=== PATIENT | female | born 1930 | race Caucasian/White ===

== ENCOUNTER 2016-05-17 11:53 | Outpatient (CLI) | payer OTHER ==
--- NOTE | 2016-05-17 19:54 | Diagnostic Imaging Report ---
[facility] [address] [facility] [address] [address] Report Submission Date: May 17, 2016 3:01:24 PM [employer]T [employer] Patient Study Name: JERMAIN PEREZ Date: May 17, 2016 12:42:44 PM [employer]T [employer] Modality Type: CT\SR Gender: F Description: CT MAXILLOFACIAL W/O D : 34 Institution: [facility] Physician: DELFINO CARPENTER CT of the facial bones Clinical history: Fall 3 months ago. Pain on the right side of the face. Technique: CT of the facial bones is performed in contiguous axial slices with sagittal and coronal reconstructions. Findings: There is artifact from the patient's metallic dental work. Zygomatic arches and nasal bones are intact as is the anterior maxillary spine. Bony margins of the orbits are intact. The extraocular muscles and optic nerves are symmetric. The orbital fat is preserved. The right maxillary sinus is completely opacified with expansion of the sinus and thinning of the majano particularly medially. There is apparent mass extending through the anterior wall into the subcutaneous soft tissues. Conceivably this could be related to trauma but appears of similar density and appears to communicate through a site of rarefaction in the anterior wall. This suggests tumor although mucocele could give a similar appearance. MRI would be helpful for better evaluation. Mucosal thickening is present in the left maxillary sinus and the ethmoid and frontal sinuses. Mandibular condyle is normally seated in the temporal fossa. There is no obvious fracture. Impression: 1. Expansile lesion right maxillary sinus with thinning of the majano and apparent extension into the subcutaneous soft tissues anteriorly. Rule out malignancy, although mucocele could give a similar appearance. Consider MRI without and with contrast for better evaluation. 2. Chronic sinusitis. 3. No fracture. Electronically signed on May 17, 2016 3:01:24 PM BELT POLISHER by: Mann RODRIGUEZ
== END 2016-05-17 11:54 ==
LOC: RAD 11:53
PROVIDERS: ATTEND Family Medicine
DX: R51 Headache (principal)
CPT/HCPCS: 70486

== ENCOUNTER 2016-05-21 08:16 | Outpatient (CLI) | payer OTHER | END 2016-05-21 08:17 | LOC: LAB 08:16 | PROVIDERS: ATTEND Internal Medicine | DX: E78.5 Hyperlipidemia, unspecified (principal) | CPT/HCPCS: 36415; 80061 ==

== ENCOUNTER 2016-08-03 19:08 | Emergency (ER) | payer OTHER ==
[2016-08-03] MEDS ORDERED: ONDANSETRON HCL/PF 4 MG/ 2ML VIAL IVP ONE (19:27)
[2016-08-03] MEDS ORDERED: 0.9 % SODIUM CHLORIDE 500 ML IV ONE (19:27)
[2016-08-03 19:38] LABS: BASOPHILS % 0.7 (0.0-1.5); EOSINOPHILS % 0.2 % (0.0-6.8); LYMPHOCYTES # 4.1 # k/uL (0.6-4.0); MEAN CORPUSCULAR HEMOGLOBIN 28.3 pg (28.0-34.0); MONOCYTES # 0.4 # k/uL (0.0-0.9); MONOCYTES % 1.7 % (0.0-11.0)
[2016-08-03 19:53] LABS: eGFR (African) 43; eGFR (Non-African) 35
--- NOTE | 2016-08-03 20:15 | ED Physician Documentation ---
General Adult - HISTORIAN Historian: patient - HPI Chief Complaint: General Adult Further Comments: yes (86 year old female patient brought in by and son for nausea. Family states patient became severely weak, confused and nauseated about 2 hours ago. 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 Oncologist [facility].) - ROS CONST: recent illness (cancer) EYES/ENT: none CVS/RESP: none GI/: nausea, other (distended abdomen, constipation per family) MS/SKIN/LYMPH: other (very weak per family) NEURO/PSYCH: difficulty walking (due to weakness) - PAST HX Past History: other (Sinus mass - CA, on chemo week 6) Other History: other (CAD, IDDM) Surgeries/Procedures: cardiac stent Allergies/Adverse Reactions: Allergies Allergy/AdvReac Type Severity Reaction Status Date / Time No Known Allergies Allergy Verified 08/03/16 22:33 Home Medications: Ambulatory Orders Medication Instructions Recorded NK [NK] 08/03/16 - SOCIAL HX Smoking History: non-smoker - FAMILY HX Family History: No - REVIEWED ASSESSMENTS Nursing Assessment Reviewed: Yes Vitals Reviewed: Yes Progress - Progress Progress: Code status assessed on arrival. states he wants CPR and intubation Patient with bradycardia, respiratory arrest - code blue called, bagging with 100% BVM. HR 36, atropine given, CPR begun. See code blue sheet Difficult intubation, vomit in airway; intubated with boogie, then 7.0 ETT, 23 at lip, good color change, BBS very course, vomit in ETT - suctioned. No return of spontaneous rhythm. Consult with family, and son at bedside with CPR and bagging in progress. 1949 Time of - family requested CPR stop Lab results completed after TOD. Likely cause hyperkalemia or sepsis ED Results Lab/Radiology - Lab Results Lab Results: Lab Results 08/03/16 08/03/16 19:25 19:25 WBC 26.20 K/ul H K/ul (4.00-12.00) RBC 3.31 M/ul L M/ul (3.90-5.20) Hgb 9.4 g/dL L g/dL (12.0-16.0) Hct 34.3 % L % (34.5-46.5) MCV 103.7 fl H fl (80.0-100.0) MCH 28.3 pg pg (28.0-34.0) MCHC 27.3 g/dL L g/dL (30.0-36.0) RDW 15.7 % H % (11.3-14.3) Plt Count 470 K/mm3 H K/mm3 (130-400) Neut % (Auto) 79.9 % H % (39.0-79.0) Lymph % (Auto) 15.6 % L % (16.0-50.0) Ritchie % (Auto) 1.7 % % (0.0-11.0) Eos % (Auto) 0.2 % % (0.0-6.8) Baso % (Auto) 0.7 (0.0-1.5) Neut # 21.0 # k/uL H # k/uL (1.4-7.7) Lymph # 4.1 # k/uL H # k/uL (0.6-4.0) Ritchie # 0.4 # k/uL # k/uL (0.0-0.9) Eos # 0.0 # k/uL # k/uL (0.0-0.6) Baso # 0.2 # k/uL # k/uL (0.0-0.5) Reactive Lymphs % 1.9 % % (0.0-5.0) Reactive Lymphs # 0.5 # k/uL # k/uL (0.0-0.8) Sodium 143 mmol/L mmol/L (136-145) Potassium 7.8 mmol/L H* mmol/L (3.5-5.0) Chloride 100 mmol/L mmol/L (98-110) Carbon Dioxide 8 mmol/L L mmol/L (20-32) BUN 38 mg/dL H mg/dL (10-26) Creatinine 1.5 mg/dL mg/dL (0.4-1.5) Est GFR ( Amer) 43 L (60 - ) Est GFR (Non-Af Amer) 35 L (60 - ) Glucose 186 mg/dL H mg/dL (70-99) Calcium 12.9 mg/dL H mg/dL (8.5-10.5) Total Bilirubin 0.4 mg/dL mg/dL (0.2-1.2) AST 184 U/L H U/L (0-41) ALT 156 U/L H U/L (0-45) Alkaline Phosphatase 128 U/L H U/L (46-116) Total Protein 7.5 g/dL g/dL (6.0-8.5) Albumin 4.5 g/dL g/dL (3.0-5.5) - Orders Orders: ED Orders Category Date Time Status Continuous EKG monitoring Q30M Care 08/03/16 19:20 Active Continuous Pulse Oximetry Q30M Care 08/03/16 19:[address] Saline Lock/IV NOW Care 08/03/16 19:19 Active CBC/PLATELET/DIFF Stat Lab 08/03/16 19:25 Completed CMP Stat Lab 08/03/16 19:25 Completed 0.9 % Sodium Chloride [Normal Saline] 500 ml Med 08/03/16 19:27 Active IV NOW Ondansetron HCl/Pf [Zofran 4 mg/2 ml] Med 08/03/16 19:27 Discontinued 4 mg IVP NOW ONE Oxygen Daily Oxygen 08/03/16 19:30 Ordered General Adult Physical Exam - PHYSICAL EXAM GENERAL APPEARANCE: severe distress EENT: eye inspection normal, ARPITA RESPIRATORY: chest non-tender, other (poor air movement, clear upper lobes, RA Sat 78 on arrival ) CVS: reg rate & rhythm, heart sounds normal, tachycardia (ST on arrival ) ABDOMEN: tenderness (all over), abnormal bowel sounds, decreased BS, distended BACK: normal inspection, no CVA tenderness SKIN: pallor (extremely pale) EXTREMITIES: non-tender, other (severe generalized weakness) NEURO: other (speech slurred. Patient stated "I am not afraid to ") Discharge Clincal Impression: Hyperkalemia, Elevated LFTs, Maxillary sinus cancer Sepsis Qualifiers: Sepsis type: sepsis due to unspecified organism Qualified Code(s): A41.9 - Sepsis, unspecified organism Home Medications: Ambulatory Orders NK [NK] 08/03/16 Disposition: 20 Decision to Admit: NO Decision Time: 19:52
[2016-08-03 22:30] VITALS: BP 127/72
[2016-08-04] MEDS ORDERED: SODIUM BICARBONATE 50 MEQ/50 ML SYRINGE ONE (01:50)
[2016-08-04] MEDS ORDERED: EPINEPHrine 0.1 MG/ML DISP.SYRIN IVP ONE (01:54)
== END 2016-08-03 19:52 | disposition expired ==
LOC: ED 19:08
DX: A41.9 Sepsis, unspecified organism (principal); I46.8 Cardiac arrest due to other underlying condition
CPT/HCPCS: 31500; 80053; 85025; 96374; 96375; 99285; 99291; J7030; S1016